=== PATIENT | male | born 1980 | race Caucasian/White ===

== ENCOUNTER 2016-06-04 22:10 | Emergency (ER) | payer SELFPAY ==
[~2016-06-04] VITALS: Ht 165.1 cm; Wt 68.0 kg
[~2016-06-04 22:10] MED LIST: SOMA350T PO; XANA2TAB2 PO
[2016-06-04 22:12] VITALS: BP 127/68; PULSE 114; RESP 16; TEMP 97.8; O2SAT 94
[2016-06-04] MEDS ORDERED: TETANUS/DIPHTHERIA TOXOID ADULT 0.5 ML VIAL IM ONE (22:15)
[2016-06-04] MEDS ORDERED: SODIUM CHLORIDE 0.9% FLUSH 5 ML FLUSH IVF PRN (22:15)
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
--- NOTE | 2016-06-04 22:43 | RADRPT ---
EXAM DATE/TIME: 06/04/2016 22:16 [facility] COMPARISON: No previous studies available for comparison. INDICATIONS : Chest pain. MEDICAL HISTORY : None. SURGICAL HISTORY : None. ENCOUNTER: Initial ACUITY: 1 day PAIN SCORE: 9/10 LOCATION: Bilateral chest FINDINGS: A single view of the chest demonstrates the lungs to be symmetrically aerated without evidence of mas s, infiltrate or effusion. The cardiomediastinal contours are unremarkable. Osseous structures are intact. CONCLUSION: No acute disease. Ang Jefferson MD on June 04, 2016 at 22:40 Board Certified Radiologist. This report was verified electronically.
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
[2016-06-04] MEDS ORDERED: SODIUM CHLOR 0.9% 1000 ML INJ 1,000 ML IV ONE (23:45)
[2016-06-05 00:07] VITALS: BP 134/76; PULSE 89; RESP 18; O2SAT 98
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
== END 2016-06-05 01:18 ==
LOC: NEPE 22:10
DX: T14.8 Other injury of unspecified body region (principal); F17.210 Nicotine dependence, cigarettes, uncomplicated; F19.10 Other psychoactive substance abuse, uncomplicated; Y04.8XXA Assault by other bodily force, initial encounter; S00.81XA Abrasion of other part of head, initial encounter
CPT/HCPCS: 70450; 70486; 71010; 72072; 72125; 80320; 90471; 90714; 96360; 99284; J7030

== ENCOUNTER 2016-09-02 18:54 | Emergency (ER) | payer SELFPAY ==
[~2016-09-02] VITALS: Ht 165.1 cm; Wt 63.0 kg
[2016-09-02] MEDS ORDERED: SODIUM CHLORIDE 0.9% FLUSH 10 ML FLUSH IVF PRN (20:00)
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
[2016-09-02 20:05] VITALS: BP 119/69; PULSE 92; RESP 16; TEMP 98.6; O2SAT 95
[2016-09-02 20:12] VITALS: PULSE 92
[2016-09-02 20:28] LABS: AUTOMATED NEUTROPHIL # 15.6 TH/MM3 (1.8-7.7); BASOPHIL # 0.1 TH/MM3 (0-0.2); BASOPHIL % 0.4 % (0.0-2.0); EOSINOPHIL % 0.1 % (0.0-4.0); HEMATOCRIT 40.7 % (39.0-51.0); HEMO FLAGS DIFF FINAL; LYMPH % 7.7 % (9.0-44.0); LYMPHOCYTE # 1.3 TH/MM3 (1.0-4.8); MEAN CELL VOLUME 84.4 FL (80.0-100.0); MEAN CORPUSCULAR HEMOGLOBIN 28.8 PG (27.0-34.0); MEAN CORPUSCULAR HGB CONC 34.1 % (32.0-36.0); MONO % 2.1 % (0.0-8.0); NEUT % 89.7 % (16.0-70.0); PLATELET COUNT 270 TH/MM3 (150-450); RED BLOOD COUNT 4.82 MIL/MM3 (4.50-5.90); RED CELL DISTRIBUTION WIDTH 13.3 % (11.6-17.2); WHITE BLOOD COUNT 17.3 TH/MM3 (4.0-11.0)
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
[2016-09-02 20:41] VITALS: BP 118/66; PULSE 87; O2SAT 97
[2016-09-02 20:48] LABS: ANION GAP 9 MEQ/L (5-15); BICARBONATE 25.7 MEQ/L (21.0-32.0); BLOOD UREA NITROGEN 13 MG/DL (7-18); CHLORIDE 104 MEQ/L (98-107); GLOMERULAR FILTRATION RATE 55 ML/MIN (>89); MAGNESIUM 3.4 MG/DL (1.5-2.5); POTASSIUM 3.6 MEQ/L (3.5-5.1); SODIUM (NA) 139 MEQ/L (136-145)
[2016-09-02] MEDS ORDERED: SODIUM CHLOR 0.9% 1000 ML INJ 1,000 ML IV SCH (20:50)
[2016-09-02 20:53] LABS: CREATINE KINASE 67 U/L (39-308)
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
[2016-09-02 22:12] VITALS: BP 117/61
--- NOTE | 2016-09-03 21:22 | EKG ---
Date Performed: 09/02/2016 Time Performed: 20:24:21 PTAGE: 35 years EKG: Sinus rhythm POSSIBLE RIGHT VENTRICULAR CONDUCTION DELAY BORDERLINE ECG NO PREVIOUS TRACING DOCTOR: Harley Tabares Interpretating Date/Time 09/03/2016 21:20:39
== END 2016-09-02 22:34 ==
LOC: NEPD 18:54
DX: S09.90XA Unspecified injury of head, initial encounter (principal); R07.89 Other chest pain; Y04.2XXA Assault by strike against or bumped into by another person, initial encounter; Y93.02 Activity, running; Y92.512 Supermarket, store or market as the place of occurrence of the external cause
CPT/HCPCS: 70450; 71010; 80048; 82550; 83735; 84484; 85025; 93005; 96360; 99284; J7030